=== PATIENT | female | born 1955 | race Caucasian/White ===

== ENCOUNTER → 2016-07-30 | Outpatient (CLI) | payer OTHER | LOC: CIMAGING 09:41 | DX: Z12.31 Encounter for screening mammogram for malignant neoplasm of breast (principal); Z80.3 Family history of malignant neoplasm of breast | CPT/HCPCS: G0202 ==

== ENCOUNTER → 2017-01-18 | Outpatient (CLI) | payer OTHER | LOC: BRMIMAGING 10:48 | PROVIDERS: ATTEND Obstetrics & Gynecology | DX: Z13.820 Encounter for screening for osteoporosis (principal); M85.89 Other specified disorders of bone density and structure, multiple sites; Z82.62 Family history of osteoporosis ==

== ENCOUNTER 2017-04-25 05:55 | Observation (INO) | payer OTHER ==
[2017-04-25] MEDS ORDERED: ROPIVACAINE 0.2% 80 MG, EPINEPHrine 0.2 MG, KETOROLAC TROMETHAMINE 30 MG in SYRINGE 0 ML IU ONE (06:00)
[2017-04-25] MEDS ORDERED: ceFAZolin 2 GM/SWFI 2 GM/20 ML SYR IVP ONE (06:20)
[2017-04-25] MEDS ORDERED: DEXAMETHASONE 4 MG/ML VIAL IVP ONE (06:20)
[2017-04-25] MEDS ORDERED: FAMOTIDINE 20 MG TAB PO ONE (06:20)
[2017-04-25] MEDS ORDERED: ACETAMINOPHEN 325 MG TAB PO ONE (06:20)
[2017-04-25] MEDS ORDERED: LIDOCAINE 1% 2 ML INJ ID PRN (06:21)
[2017-04-25] MEDS ORDERED: LR 1,000 ML IV ONE (06:21)
--- NOTE | 2017-04-25 06:51 | PDANEPAE ---
ANE History of Present Illness 61 yo female with knee OA. ANE Past Medical History - Cardiovascular History Hx Hypertension: No Hx Arrhythmias: No Hx Chest Pain: No Hx Coronary Artery / Peripheral Vascular Disease: No Hx CHF / Valvular Disease: No Hx Palpitations: No - Pulmonary History Hx COPD: No Hx Asthma/Reactive Airway Disease: No Hx Recent Upper Respiratory Infection: No Hx Oxygen in Use at Home: No Hx Sleep Apnea: No Sleep Apnea Screening Result - Last Documented: Negative - Neurologic History Hx Cerebrovascular Accident: No Hx Seizures: No Hx Dementia: No - Endocrine History Hx Diabetes: No Hypothyroid: Yes Obesity: no - Renal History Hx Renal Disorders: No - Liver History Hx Hepatic Disorders: No - Neurological & Psychiatric Hx Hx Neurological and Psychiatric Disorders: Yes Neurological / Psychiatric History Comment: depression - Cancer History Hx Cancer: No - Congenital Disorder History Hx Congenital Disorders: No - GI History GERD: no Hx Gastrointestinal Disorders: No - Other Health History Other Health History: arthritis - Chronic Pain History Chronic Pain: No - Surgical History Prior Surgeries: spinal fusion T-11/L-4. left foot toe sx. rhinoplasty. knee scope ANE Review of Systems Review of Systems: - Exercise capacity METS (RN): 4 METS - Systems Constitutional: Reports: no symptoms EENMT: Reports: no symptoms Cardiac: Reports: no symptoms Respiratory: Reports: no symptoms ANE Patient History - Allergies Allergies/Adverse Reactions: Penicillins Allergy (Intermediate, Verified 03/16/17 15:01) Hives valdecoxib [From Bextra] Allergy (Mild, Verified 03/16/17 15:01) Rash clindamycin Allergy (Verified 03/16/17 15:00) Rash - Home Medications Home Medications: CALCIUM CITRATE 200 mg PO BID 11/17/11 [Last Taken 04/24/17] CHOLECALCIFEROL [VITAMIN D] 11/17/11 [Last Taken 04/25/17] DULoxetine [Cymbalta 30 MG (RX)] 11/17/11 [Last Taken 04/25/17] Fexofenadine HCl [Geni Allergy] 60 mg PO PRN 11/17/11 [Last Taken 04/25/17] LEVOTHYROXINE SODIUM [Tirosint 50mcg] 50 mcg PO 11/17/11 [Last Taken 04/25/17] Nortriptyline HCl [Pamelor 25 mg (RX)] 30 mg PO HS 11/17/11 [Last Taken 04/24/17 ] Polyethylene Glycol 3350 [Miralax] 11/17/11 [Last Taken 04/24/17] ZOLPIDEM TARTRATE [Ambien CR 12.5 mg] 5 mg PO HS 11/17/11 [Last Taken 04/24/17] Probiotic 03/16/17 [Last Taken 04/25/17] - NPO status NPO Since - Liquids (Date): 04/25/17 NPO Since - Liquids (Time): 05:00 (water with meds at home) NPO Since - Solids (Date): 04/24/17 NPO Since - Solids (Time): 21:00 - Anes Hx Anes Hx: post operative nausea and vomiting Hx Anesthesia Complications (with details): pt had emesis in first 24 hours after surgery [address] Dr[address] Castillo. No nausea, just emesis. - Smoking Hx Smoking Status: Never smoked - Family Anes Hx Family Anes Hx: neg - N/A Family Hx Anesthesia Complications: none ANE Labs/Vital Signs - Vital Signs Blood Pressure: 130/69 Heart Rate: 84 Respiratory Rate: 18 O2 Sat (%): 98 Height: 160.02 cm Weight: 63.503 kg ANE Physical Exam - Airway Neck exam: FROM Mallampati Score: Class 2 Mouth exam: normal dental/mouth exam - Pulmonary Pulmonary: clear to auscultation - Cardiovascular Cardiovascular: regular rate and rhythym - ASA Status ASA Status: II ANE Anesthesia Plan Anesthesia Plan: spinal Regional Anesthesia: adductor canal FNB
--- NOTE | 2017-04-25 07:05 | PDHPUP ---
History & Physical Update H&P update statement: This history and physical update is based on an assessment of the patient which was completed after admission or registration (within 24 hours), but prior to the surgery/procedure. H&P update: H&P reviewed & patient examined, no change in patient's condition since H&P completed
[2017-04-25] MEDS ORDERED: DEXAMETHASONE 4 MG/ML VIAL ONE (07:12)
[2017-04-25] MEDS ORDERED: LIDOCAINE 2% 5 ML SDV ONE (07:12)
[2017-04-25] MEDS ORDERED: fentaNYL 100 MCG/2 ML INJ ONE (07:12)
[2017-04-25] MEDS ORDERED: PROPOFOL/EMULSION 500 MG/50 ML BOTTLE IV ONE ×3 (07:12→09:04)
[2017-04-25] MEDS ORDERED: ceFAZolin 1 GM/5 ML SYR ONE (07:28)
[2017-04-25] MEDS ORDERED: CALCIUM CHLORIDE 1 GM/10 ML INJ ONE (07:53)
[2017-04-25] MEDS ORDERED: THROMBIN (BOVINE) 5,000 UNIT VIAL TP ONE (07:53)
[2017-04-25] MEDS ORDERED: ONDANSETRON 4 MG/2 ML VIAL ONE (07:59)
[2017-04-25] MEDS ORDERED: ALBUTEROL 3 ML DEYVIAL IH PRN (09:24)
[2017-04-25] MEDS ORDERED: PROMETHAZINE HCL 25 MG/ML INJ IVP PRN ×2 (09:24→12:40)
[2017-04-25] MEDS ORDERED: LR 500 ML IV PRN ×2 (09:24→12:40)
[2017-04-25] MEDS ORDERED: OXYCODONE/APAP 5/325 TAB PO PRN ×2 (09:24→12:40)
[2017-04-25] MEDS ORDERED: NALOXONE HCL 0.4 MG/ML INJ IVP PRN ×2 (09:24→12:40)
[2017-04-25] MEDS ORDERED: DIAZEPAM 5 MG/ML 1 ML SYR IVP PRN (09:24)
[2017-04-25] MEDS ORDERED: BUPIVACAINE 0.5% 10 ML SDV ONE (09:29)
[2017-04-25] MEDS ORDERED: ONDANSETRON 4 MG/2 ML VIAL IVP PRN ×2 (10:03→12:40)
[2017-04-25] MEDS ORDERED: MAGNESIUM HYDROXIDE 30 ML UDCUP PO PRN (10:03)
[2017-04-25] MEDS ORDERED: LACTULOSE 20 GM/30 ML UDCUP PO PRN (10:03)
[2017-04-25] MEDS ORDERED: BISACODYL 10 MG SUPP PR PRN (10:03)
[2017-04-25] MEDS ORDERED: ONDANSETRON DISINTEGRATING 4 MG TAB PO PRN (10:03)
[2017-04-25] MEDS ORDERED: POLYETHYLENE GLYCOL 3350 17 GM PKT PO PRN (10:03)
[2017-04-25] MEDS ORDERED: CYCLOBENZAPRINE 10 MG TAB PO PRN (10:03)
[2017-04-25] MEDS ORDERED: oxyCODONE IR 5 MG TAB PO PRN (10:03)
[2017-04-25] MEDS ORDERED: diphenhydrAMINE 25 MG CAP PO PRN (10:03)
[2017-04-25] MEDS ORDERED: DIPHENOXYLATE/ATROPINE LOMOTIL 1 TAB PO PRN (10:03)
--- NOTE | 2017-04-25 10:11 | POSTOPPROG ---
Post Op Note Date of Operation: 04/25/17 Surgeon: Colleen Fernandez [facility] Operator: Meche Castle PA-C Anesthesiologist: Dr. Hidalgo Anesthesia: GET(General Endotracheal) Pre-op Diagnosis: right knee osteoarthritis Post-op Diagnosis: right knee osteoarthritis Indication: right knee pain Procedure: right TKA Inf/Abcess present in the surg proc area at time of surgery?: No EBL: Minimal Complications: none
--- NOTE | 2017-04-25 10:18 | POSTANESTH ---
Post Anesthetic Evaluation Cardiovascular Status: Normal, Stable Respiratory Status: Normal, Stable Level of Consciousness/Mental Status: Unconscious Pain Control: Adequate, Prn Tx Ordered Nausea/Vomiting Control: Adequate, Prn Tx Ordered Complications Possibly Related to Anesthesia: None Noted
[2017-04-25] MEDS ORDERED: LR 1,000 ML IV SCH (10:30)
--- NOTE | 2017-04-25 10:36 | SOAPPROG ---
SOAP Progress Note Assessment/Plan: Assessment/Plan: S/P right TKA, stable and doing well - orders as written - post-op xrays pending - PT/OT - active care system, ASA starts tomorrow - anticipate discharge home tomorrow with home health care - call with issues or concerns 04/25/17 10:34 Subjective: No pain Objective: Vital Signs Temp Pulse Resp BP Pulse Ox 36.6 C 84 20 142/77 H 99 04/25/17 09:55 04/25/17 07:05 04/25/17 10:21 04/25/17 10:21 04/25/17 10:21 NAD, waking from anesthesia, no distress EOMi, face symmetric incision clean, dressed ICD10 Worksheet Patient Problems: Problems Problem Status Onset Osteoarthritis Acute - ICD10 Problem Qualifiers (1) Osteoarthritis Qualifiers: Osteoarthritis location: knee
--- NOTE | 2017-04-25 11:13 | GOP ---
[f rep st] OPERATIVE REPORT DATE OF OPERATION: 04/25/2017 SURGEON: Colleen Fernandez MD [facility] DIRECTOR: Meche Castle, GIANNI ANESTHESIA: General with adductor canal block. PREOPERATIVE DIAGNOSIS: Severe osteoarthritis, right knee. POSTOPERATIVE DIAGNOSIS: Severe osteoarthritis, right knee. PROCEDURE PERFORMED: Right total knee arthroplasty. FINDINGS: Preoperative x-rays of the right knee demonstrated severe osteoarthritis. At the time of surgery, this finding was confirmed. The patient had complete loss of the articular cartilage throug hout the knee. There was a massive effusion which was drained at the beginning of the procedure. Th is was approximately 90 cc of fluid. The patient had severe synovitis throughout the knee. A partia l synovectomy was performed. A cemented total knee arthroplasty was performed using [employer] 2 total knee components. A size 5 femoral component was cemented in place on the femoral si de and a size 3 tibial baseplate was utilized on the tibia. A 12 mm thick cross-linked polyethylene insert was placed in the metal backing of the tibia. A 35 mm round patellar component was utilized o n the patella. Following implantation of the components, the knee was taken through range of motion and noted to be stable with varus and valgus stressing in extension and flexion. The patient achieve d full extension, 135 degrees of flexion on the table. ESTIMATED BLOOD LOSS: Minimal. DESCRIPTION OF PROCEDURE: The patient was taken the operating room, placed in supine position on the operating table. Following induction of adequate general inhalation anesthesia, the knee and leg we re prepped and draped in the usual sterile manner. The patient received 2 g of IV Ancef. The leg wa s elevated, exsanguinated, and the tourniquet inflated to 300 mmHg. The Cloudjutsuayo leg vaughn was used t hroughout the procedure for positioning. A midline incision was made extending from just superior to the patella distally to the tibial tubercle. Incision was carried down through the subcutaneous tis ranjith to the retinaculum of the knee. A medial parapatellar arthrotomy was then performed. The patell a was everted laterally and the thickness was measured. A 9 mm cut was taken from the posterior aspe ct of the patella. The cut surface was protected with a metal plate and the patella was placed in th e lateral gutter. Our attention was then turned to the distal femur. The distal femoral drill hole was made. The distal femoral cutting jig was placed on the distal femur and a +2 cut was taken from the distal femur. The femur was then sized and a size 5 component was felt to be the best fit. The size 5 cutting block was placed on the distal femur and then it was pinned and the anterior, posterio r and chamfer cuts were made. The size 5 trial was placed on the distal femur and an excellent fit w as noted. The notch was then cleared with a reamer and the box osteotome. The femoral component was removed and our attention was turned to the tibia. The tibia was retracted anteriorly. With the kn ee in flexion, intramedullary referencing was used for the tibial side as well. The drill hole was p laced in the proximal tibia and then the intramedullary guide was inserted, positioned and pinned. T he tibial cut was made. The tibia was then sized and a size 3 tibial baseplate was the best fit. It was pinned and a trial reduction was performed with the 10, 11 and 12 polys. The 12 was the best fi t. The patella was prepared and the patella tracked well in the trochlear groove with 35 mm round pa tellar button. The femur and patella were then removed and the keel punch was utilized. The tibial component was removed. All the bony surfaces were thoroughly irrigated and dried and then the cement was mixed. The tibial baseplate was cemented first followed by the femur and the patella. The knee was brought into extension with the 12 [address]. Pressure was held on the com ponents while the cement hardened. Excess cement was removed from around the edges. The knee was th en flexed up and the polyethylene was opened and inserted. Prior to inserting the polyethylene, the posterior capsule was injected with joint cocktail. The wound was irrigated out and the retinaculum of the knee was closed using #2 FiberWire in a [id number] fashion. The subcutaneous tissues wer e closed using 2-0 Vicryl. The skin was closed using cedrick. The extensor mechanism was also injec summer with joint cocktail. Platelet gel was used in the deep and superficial portions of the wound to enhance wound healing. Sterile dressings were applied. The patient tolerated the procedure well. T here were no complications. Estimated blood loss minimal. Final sponge, needle counts were correct. The patient was transported to the recovery room in good condition. /[id number]/MODL
[2017-04-25] MEDS ORDERED: fentaNYL 100 MCG/2 ML INJ IVP PRN (12:40)
[2017-04-25] MEDS: ceFAZolin 2 GM/SWFI 2 GM/20 ML SYR IVP SCH ×2 (13:51→23:15)
[2017-04-25] MEDS: ACETAMINOPHEN 325 MG TAB PO SCH ×3 (13:51→23:15)
--- NOTE | 2017-04-25 16:48 | ASMTCMCOM ---
CM Note CM Note Notes: Pt is s/p R TKA today. Pt thinks her surgeon recommended a home care but can't remember the name. She will check tomorrow and if not, CM will discuss HC options with her. 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 CM will follow up for d/c needs. Date Signed: 04/25/2017 04:47 PM Electronically Signed By:ANTONIO Chapman
[2017-04-25] MEDS ORDERED: NORTRIPTYLINE HCL 10 MG CAP PO SCH (21:00)
[2017-04-25] MEDS ORDERED: ZOLPIDEM TARTRATE 5 MG TAB PO SCH (21:00)
[2017-04-25] MEDS ORDERED: CALCIUM CITRATE 200 MG PO SCH (21:00)
[2017-04-25] MEDS: SENNOSIDES/DOCUSATE SODIUM TAB PO SCH (21:04)
[2017-04-26 00:06] VITALS: RESP 16
[2017-04-26] MEDS: ACETAMINOPHEN 325 MG TAB PO SCH ×2 (05:25→13:04)
[2017-04-26] MEDS ORDERED: LEVOTHYROXINE 75 MCG TAB PO SCH (06:00)
[2017-04-26] MEDS ORDERED: LEVOTHYROXINE 50 MCG TAB PO SCH (06:00)
[2017-04-26 07:42] VITALS: TEMP 98.2
[2017-04-26] MEDS ORDERED: ASPIRIN 81 MG CHEWABLE TAB PO SCH (09:00)
[2017-04-26] MEDS ORDERED: FERROUS SULFATE 140 MG TAB.ER PO SCH (09:00)
[2017-04-26] MEDS ORDERED: DULoxetine 30 MG CAP PO SCH (09:00)
[2017-04-26] MEDS ORDERED: POLYETHYLENE GLYCOL 3350 17 GM PKT PO SCH (09:00)
[2017-04-26] MEDS: SENNOSIDES/DOCUSATE SODIUM TAB PO SCH (09:41)
[2017-04-26 12:47] VITALS: BP 112/63; PULSE 70; O2SAT 95
--- NOTE | 2017-04-26 13:18 | SOAPPROG ---
SOAP Progress Note Assessment/Plan: Assessment/Plan: S/P right TKA, stable and doing well - orders as written - post-op xrays stable - PT/OT - active care system, ASA - discharge home this afternoon, will need home health care - patient encouraged to call with any issues or concerns 04/26/17 13:17 Subjective: Minimal pain, doing well with Tylenol. Eating, drinking, voiding, ambulating Objective: Vital Signs Temp Pulse Resp BP Pulse Ox 36.8 C 70 16 112/63 95 04/26/17 12:00 04/26/17 12:00 04/26/17 12:00 04/26/17 12:00 04/26/17 12:00 Laboratory Results 04/26/17 04:16 04/25/17 04/26/17 04/27/17 05:59 05:59 05:59 Intake Total 1705 350 Output Total 1700 Balance 5 350 NAD, well appearing, no distress EOMi, face symmetric MAEx4 near full extension flexion 90 incision CDI, no erythema or active drainage new dressing placed ICD10 Worksheet Patient Problems: Problems Problem Status Onset Osteoarthritis Acute - ICD10 Problem Qualifiers (1) Osteoarthritis Qualifiers: Osteoarthritis location: knee
--- NOTE | 2017-04-26 13:23 | PDIAF ---
- Diagnosis Diagnosis: right knee osteoarthritis Code Status: Full Code - Medication Management Discharge Medications: Medications to Continue on Transfer Cholecalciferol Vit D3 [Vitamin D3 2000 units tab (OTC)] 2,000 units PO DAILY [Last Taken 04/25/17] DULoxetine [Cymbalta 30 MG (*)] 30 mg PO DAILY 04/25/17 [Last Taken 04/25/17] Glycerin 1 each RC DAILY 04/25/17 [Last Taken 04/25/17] Herbals/Supplements -Info Only 1 ea PO DAILY 04/25/17 [Last Taken Unknown] Levothyroxine [Synthroid 50 mcg (*)] 50 mcg PO MOTH 04/25/17 [Last Taken ] Levothyroxine [Synthroid 75 mcg (*)] 75 mcg PO SUTUWEFRSA 04/25/17 [Last Taken 04/24/17] Nortriptyline HCl [Pamelor 10 mg (*)] 30 mg PO HS 04/25/17 [Last Taken 04/24/17] Polyethylene Glycol 3350 [Miralax 17 gm (*)] 17 gm PO DAILY 04/25/17 [Last Taken 04/24/17 21:00] Zolpidem Tartrate [Ambien 5MG (*)] 5 mg PO HS PRN 04/25/17 [Last Taken 04/24/17] Acetaminophen [Tylenol 325mg (*)] 650 mg PO Q6HRS tab 04/26/17 [Last Taken Unknown] Aspirin [Aspirin 81mg (*)] 81 mg PO BID tab.chew 04/26/17 [Last Taken Unknown] Ferrous Sulfate [Slow Fe 140 MG (*)] 140 mg PO DAILY tab.er 04/26/17 [Last Taken Unknown] oxyCODONE IR [Oxycodone Ir (*)] 5 - 10 mg PO Q3HRS PRN tab 04/26/17 [Last Taken Unknown] Discharge Medications: Refer to the Discharge Home Medication list for PRN reason. - Orders Services needed: Home Care, Physical Therapy, Occupational Therapy Home Care Face to Face: I certify that this patient was under my care and that I had the required [id number] encounter meeting the encounter requirements on the discharge day. My findings support the fact that the patient is homebound as defined in Home Care Face to Face Continued: [facility] Chapter 7 Medicare Benefits Manual 30.1.1 , The condition of the patient is such that there exists a normal inability to leave home and consequently, leaving home would require a considerable and taxing effort. Diet Recommendation: no restrictions on diet Diet Texture: Regular Texture Diet [place] Stockings Discontinue Date: continue active care system x 12 days Wound Care Instructions: keep incision clean and dry; will remove cedrick at post-operative visit Activity/Weight Bearing Restrictions: WBAT - Follow Up Care Current Providers and Referrals: Colleen Fernandez MD [Medical Doctor] - Kathi León MD [Primary Care Provider] -
--- NOTE | 2017-04-26 13:51 | ASMTCMCOM ---
CM Note CM Note Notes: Pt medically stable for d/c with [facility], orders sent in [employer]. Date Signed: 04/26/2017 01:50 PM Electronically Signed By:ANTONIO Cuadra
--- NOTE | 2017-04-26 14:20 | ASDISCHSUM ---
Discharge Information Plan Status:Home with Home Health Medically Cleared to Leave: Discharge Date:04/26/2017 02:08 PM CM D/C Disposition:Home Health Service ADT D/C Disposition:[id number] Projected Discharge Date:04/26/2017 11:00 AM Transportation at D/C:Family Discharge Delay Reason: Follow-Up Date:04/26/2017 11:00 AM Discharge Slot: Final Diagnosis: Placement Information Referral Type:*Home Health Care Services Referral ID:[id number] Provider Name:[facility] Address 1:[address] [address] Address 2: City:[place] Selection Factors: State:[place] Patient Contact Information Contact Name:SHELLEYJuniMELODYJAELYN Relationship: Address:[address] [facility] City:[place] Alternate Phone: State/Zip Code:[place] [address] Email: Financial Information Financial Class:HMO and PPO Plans Primary Plan Desc:HMO [employer] [employer] Primary Plan Number:[id number] Secondary Plan Desc: Secondary Plan Number: Assessment Information [facility] CM Progress Note CM Note CM Note Notes: Pt is s/p R TKA today. Pt thinks her surgeon recommended a home care but can't remember the name. She will check tomorrow and if not, CM will discuss HC options with her. 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 CM will follow up for d/c needs. Date Signed: 04/25/2017 04:47 PM Electronically Signed By:ANTONIO Chapman [facility] CM Progress Note CM Note CM Note Notes: Pt medically stable for d/c with [facility], orders sent in [employer]. Date Signed: 04/26/2017 01:50 PM Electronically Signed By:ANTONIO Cuadra Intervention Information
[2017-04-28] MEDS ORDERED: LEVOTHYROXINE 50 MCG TAB PO SCH (06:00)
== END 2017-04-26 14:08 | disposition home health service (06) ==
LOC: INTOOBSV 05:55 → F3N 05:55
PROVIDERS: ADMIT Orthopaedic Surgery; ATTEND Orthopaedic Surgery
PROC: 0SRC069 Replacement of Right Knee Joint with Oxidized Zirconium on Polyethylene Synthetic Substitute, Cemented, Open Approach (ICD-10-PCS; principal; 2017-04-25 07:15)
DX: M17.11 Unilateral primary osteoarthritis, right knee (principal); F32.9 Major depressive disorder, single episode, unspecified; E03.9 Hypothyroidism, unspecified; Z98.1 Arthrodesis status; Z88.0 Allergy status to penicillin
CPT/HCPCS: 27447; 73560; 97110; 97116; 97161; 97166; 97530; G0378; C1713; J0171; J0690; J1100; J1885; J2270; J2405; J2704; J2795; J3010

== ENCOUNTER → 2017-05-16 | Outpatient (CLI) | payer OTHER | LOC: BMCIMAGING 10:12 | PROVIDERS: ATTEND Internal Medicine | DX: R10.9 Unspecified abdominal pain (principal) ==

== ENCOUNTER → 2017-08-01 | Outpatient (CLI) | payer OTHER | LOC: CIMAGING 09:41 | PROVIDERS: ATTEND Obstetrics & Gynecology | DX: Z12.31 Encounter for screening mammogram for malignant neoplasm of breast (principal); Z80.3 Family history of malignant neoplasm of breast ==

== ENCOUNTER → 2018-08-02 | Outpatient (CLI) | payer OTHER | LOC: CIMAGING 09:45 ==